=== PATIENT | female | born 1975 ===

== ENCOUNTER 2017-06-08 21:27 | Emergency (ER) | payer MEDICAID ==
[2017-06-08 21:27] VITALS: BMI 26.4
[2017-06-08 22:22] VITALS: BP 158/114; PULSE 86; RESP 18; TEMP 98.1; O2SAT 100
[2017-06-08] MEDS ORDERED: Sodium Chloride 0.9% 1,000 ML IV STA (23:10)
--- NOTE | 2017-06-08 23:27 | ED PDOC ---
HPI: Abdomen Time Seen by Provider: 06/08/17 22:52 Chief Complaint (Nursing): Abdominal Pain Chief Complaint (Provider): left flank pain History Per: Patient History/Exam Limitations: no limitations Onset/Duration Of Symptoms: Days (1) Current Symptoms Are (Timing): Still Present Location Of Pain/Discomfort: Other (left lower back radiating to left flank) Associated Symptoms: Nausea, Vomiting Last Bowel Movement: Days Ago (2) Additional History Per: Patient Additional Complaint(s): 42 y/o female history of lupus, fibromyalgia, kidney stones presents with left lower back pain x 1 day. Associated hematuria, vomiting x 3. States pain started in left lower back and travels out to flank. Patient with history of multiple kidney stones requiring surgical intervention, concerned this could be another one. Denies fever, headache, chest pain, shortness of breath, palpitations, changes in bowel movements, dysuria. Past Medical History Reviewed: Historical Data, Nursing Documentation, Vital Signs Vital Signs: Last Vital Signs Temp 98.1 F 06/08/17 22:19 Pulse 86 06/08/17 22:19 Resp 18 06/08/17 22:19 BP 158/114 H 06/08/17 22:19 Pulse Ox 100 06/09/17 02:10 - Medical History PMH: Anemia, Anxiety, Asthma, HTN, Kidney Stones, Migraine, Chronic Kidney Disease, Rheumatoid Arthritis - Surgical History Surgical History: Endoscopy - Family History Family History: States: Unknown Family Hx - Immunization History Hx Tetanus Toxoid Vaccination: No Hx Influenza Vaccination: No Hx Pneumococcal Vaccination: No - Home Medications Home Medications: Ambulatory Orders Medication Instructions Recorded Albuterol 0.083% [Albuterol 0.083% 3 ml IH PRN PRN 01/05/15 Inhal Arlen (2.5 mg/3 ml) UD] Albuterol Sulfate [Albuterol 1 puff INH PRN PRN 01/05/15 Sulfate Hfa] Alprazolam [Xanax] 1 mg PO DAILY 01/05/15 Etanercept [Enbrel] 50 mg SC TH 01/05/15 Folic Acid 1 mg PO DAILY 01/05/15 Montelukast [Singulair] 10 mg PO DAILY 01/05/15 Zolpidem Tartrate [Ambien] 5 mg PO HS 01/05/15 traMADol [Ultram] 50 mg PO TID PRN #12 tab 03/13/16 Calcipotriene 1 appl TP BID 03/25/16 Ergocalciferol [Drisdol 50,000 50,000 unit PO QWK 03/25/16 Intl Units Cap] Ferrous Sulfate 325 mg PO DAILY 03/25/16 Methotrexate 6 tab PO QWK 03/25/16 Omeprazole [Prilosec] 40 mg PO DAILY 03/25/16 Cyclobenzaprine [Cyclobenzaprine 10 mg PO BID PRN #14 tab 06/09/17 HCl] - Allergies Allergies/Adverse Reactions: Allergies Allergy/AdvReac Type Severity Reaction Status Date / Time Penicillins Allergy Severe RASH Verified 03/25/16 13:08 iodine Allergy REDNESS Verified 03/25/16 13:08 morphine Allergy RASH Verified 03/25/16 13:08 seafood Allergy SWELLING Uncoded 03/13/16 14:13 Review of Systems ROS Statement: Except As Marked, All Systems Reviewed And Found Negative Gastrointestinal: Positive for: Nausea, Vomiting, Abdominal Pain Physical Exam - Reviewed Nursing Documentation Reviewed: Yes Vital Signs Reviewed: Yes - Physical Exam Appears: Positive for: Well, Non-toxic, Uncomfortable Head Exam: Positive for: ATRAUMATIC, NORMAL INSPECTION, NORMOCEPHALIC Skin: Positive for: Normal Color Eye Exam: Positive for: Normal appearance ENT: Positive for: Normal ENT Inspection Cardiovascular/Chest: Positive for: Regular Rate, Rhythm Respiratory: Positive for: Normal Breath Sounds Gastrointestinal/Abdominal: Positive for: Bowel Sounds, Soft, Tenderness (left flank) Back: Positive for: L CVA Tenderness, Muscle Spasm (left lspine paraspinals) Extremity: Positive for: Normal ROM Neurologic/Psych: Positive for: Alert, Oriented - Laboratory Results Result Diagrams: 06/08/17 23:00 06/08/17 23:20 - ECG O2 Sat by Pulse Oximetry: 100 - Progress ED Course And Treament: labs, urine, CT renal protocol, IV fluids, IV zofran, IV toradol Initial Report created on 06/09/2017 12:55 AM Eastern Time ([place] & [place]) EXAM: CT Abdomen and Pelvis Without Intravenous Contrast CLINICAL HISTORY: 42 years old, female; Pain; Abdominal pain; Flank; Left; Prior surgery; Surgery date: 6+ months; Surgery type: Laser lithotripsy; Additional info: Left flank pain. TECHNIQUE: Axial computed tomography images of the abdomen and pelvis without intravenous contrast. All CT scans at this facility use one or more dose reduction techniques, viz.: automated exposure control; ma/kV adjustment per patient size (including targeted exams where dose is matched to indication; i.e. head); or iterative reconstruction technique. Coronal and sagittal reformatted images were created and reviewed. COMPARISON: CT - ABD PELVIS W/O PO OR IV CONT 11/28/2016 9:03:05 AM FINDINGS: Lower thorax: Small hiatal hernia. ABDOMEN: Liver: Unremarkable. Gallbladder and bile ducts: No calcified stones. No ductal dilation. Pancreas: Unremarkable. No ductal dilation. Spleen: No splenomegaly. Adrenals: No mass. Kidneys and ureters: Few small calculi within LEFT kidney. No hydronephrosis. Stomach and bowel: Cecum within pelvis. No definite mural thickening. No obstruction. Appendix: No findings to suggest acute appendicitis. PELVIS: Bladder: Unremarkable. No stones. Reproductive: Small ovarian follicles. ABDOMEN and PELVIS: Intraperitoneal space: No significant fluid collection. No free air. Bones/joints: Chronic L5 pars defects. Mild curvature of spine. Mild degenerative changes of hip joints. No acute fracture. Soft tissues: Unremarkable. Vasculature: Unremarkable. No aneurysm. Lymph nodes: No pathologically enlarged lymph nodes. IMPRESSION: 1. Nonobstructing renal calculi. 2. Incidental/non-acute findings are described above. Addendum created by Sanjay Mcdonough MD on 06/09/2017 1:02 AM Eastern Time ([place] & [place]) Kidneys and ureters: Few small calculi within LEFT kidney. Few faint punctate calculi within RIGHT kidney. No hydronephrosis. Patient educated on findings, flexeril PO given. Advised follow up PMD 2-3 days. flexeril rx given. Follow up PMD 2-3 days. Disposition - Clinical Impression Clinical Impression: Back pain - Patient ED Disposition Is Patient to be Admitted: No Counseled Patient/Family Regarding: Studies Performed, Diagnosis, Need For Followup, Rx Given - Disposition Referrals: Bin Leigh MD [Primary Care Provider] - Disposition: Routine/Home Disposition Time: 02:13 Condition: IMPROVED Prescriptions: Cyclobenzaprine [Cyclobenzaprine HCl] 10 mg PO BID PRN #14 tab PRN Reason: Muscle Spasm Instructions: Acute Low Back Pain (ED)
[2017-06-08 23:28] LABS: BASO % 0.6 % (0.0-2.0); EOS # 0.1 K/uL (0.0-0.7); EOS % 1.9 % (0.0-4.0); HEMATOCRIT 38.5 % (34.0-47.0); LYMPH # 2.5 K/uL (1.0-4.3); LYMPH % 34.8 % (20.0-40.0); MEAN CELL VOLUME 92.3 fl (81.0-99.0); MEAN CORPUSCULAR HEMOGLOBIN 30.7 pg (27.0-31.0); MEAN CORPUSCULAR HGB CONC 33.3 g/dL (33.0-37.0); MEAN PLATELET VOLUME 8.2 fl (7.2-11.7); MONO # 0.6 K/uL (0.0-0.8); MONO % 7.8 % (0.0-10.0); NEUT # 3.9 K/uL (1.8-7.0); NEUT % 54.9 % (50.0-75.0); NRBC % 0.1 % (0.0-0.0); RED CELL DISTRIBUTION WIDTH 13.6 % (11.5-14.5); WHITE BLOOD COUNT 7.1 K/uL (4.8-10.8)
[2017-06-08 23:38] LABS: ALB/GLOB RATIO 1.4 (1.0-2.1); ALKALINE PHOSPHATASE 74 U/L (38-126); ALT/SGPT 28 U/L (9-52); AST/SGOT 31 U/L (14-36); BILIRUBIN,TOTAL 0.4 mg/dl (0.2-1.3); BLOOD UREA NITROGEN 13 mg/dl (7-17); CALCIUM 9.7 mg/dL (8.4-10.2); CARBON DIOXIDE 25 mmol/L (22-30); CHLORIDE 103 mmol/L (98-107); GFR AFRICAN-AMERICAN > 60; GLUCOSE,RANDOM 89 mg/dL (65-105); POTASSIUM 4.1 MMOL/L (3.6-5.0); SODIUM 143 mmol/l (132-148); TOTAL PROTEIN 8.3 G/DL (6.3-8.2)
[2017-06-09 00:29] LABS: RBC URINE 3 /hpf (0-3); URINE BACTERIA RARE (<OCC); URINE BILIRUBIN NEGATIVE (NEGATIVE); URINE BLOOD NEGATIVE (NEGATIVE); URINE COLOR YELLOW (YELLOW); URINE GLUCOSE (UA) NEG (Normal); URINE KETONE NEGATIVE (NEGATIVE); URINE LEUKOCYTE ESTERASE NEG Leu/uL (Negative); URINE PROTEIN NEGATIVE (NEGATIVE); URINE UROBILINOGEN 0.2-1.0 mg/dL (0.2-1.0); WBC URINE 1 /hpf (0-5)
--- NOTE | 2017-06-09 00:55 | CT ---
EXAM: CT Abdomen and Pelvis Without Intravenous Contrast CLINICAL HISTORY: 42 years old, female; Pain; Abdominal pain; Flank; Left; Prior surgery; Surgery date: 6+ months; Surgery type: Laser lithotripsy; Additional info: Left flank pain. TECHNIQUE: Axial computed tomography images of the abdomen and pelvis without intravenous contrast. All CT scans at this facility use one or more dose reduction techniques, viz.: automated exposure control; ma/kV adjustment per patient size (including targeted exams where dose is matched to indication; i.e. head); or iterative reconstruction technique. Coronal and sagittal reformatted images were created and reviewed. COMPARISON: CT - ABD PELVIS W/O PO OR IV CONT 11/28/2016 9:03:05 AM FINDINGS: Lower thorax: Small hiatal hernia. ABDOMEN: Liver: Unremarkable. Gallbladder and bile ducts: No calcified stones. No ductal dilation. Pancreas: Unremarkable. No ductal dilation. Spleen: No splenomegaly. Adrenals: No mass. Kidneys and ureters: Few small calculi within LEFT kidney. No hydronephrosis. Stomach and bowel: Cecum within pelvis. No definite mural thickening. No obstruction. Appendix: No findings to suggest acute appendicitis. PELVIS: Bladder: Unremarkable. No stones. Reproductive: Small ovarian follicles. ABDOMEN and PELVIS: Intraperitoneal space: No significant fluid collection. No free air. Bones/joints: Chronic L5 pars defects. Mild curvature of spine. Mild degenerative changes of hip joints. No acute fracture. Soft tissues: Unremarkable. Vasculature: Unremarkable. No aneurysm. Lymph nodes: No pathologically enlarged lymph nodes. IMPRESSION: 1. Nonobstructing renal calculi. 2. Incidental/non-acute findings are described above.
== END 2017-06-09 02:29 | disposition home or self-care (01) ==
LOC: H.ER 21:27
DX: M54.9 Dorsalgia, unspecified (principal); F41.9 Anxiety disorder, unspecified; I12.9 Hypertensive chronic kidney disease with stage 1 through stage 4 chronic kidney disease, or unspecified chronic kidney disease; J45.909 Unspecified asthma, uncomplicated; M06.9 Rheumatoid arthritis, unspecified; Z88.0 Allergy status to penicillin; M32.9 Systemic lupus erythematosus, unspecified
CPT/HCPCS: 74176; 80053; 81003; 81025; 85025; 87086; 96374; 96375; 99283; J1885; J2405; J7040

== ENCOUNTER 2017-11-12 17:35 | Emergency (ER) | payer MEDICAID ==
[2017-11-12 17:35] VITALS: BMI 26.4
[2017-11-12 17:43] VITALS: TEMP 97.7
[2017-11-12] MEDS ORDERED: Sodium Chloride 0.9% 1,000 ML IV STA (17:57)
--- NOTE | 2017-11-12 18:03 | ED PDOC ---
HPI: Chest Pain Time Seen by Provider: 11/12/17 17:45 Chief Complaint (Nursing): Chest Pain Chief Complaint (Provider): Chest Pain History Per: Patient History/Exam Limitations: no limitations Onset/Duration Of Symptoms: Days Additional Complaint(s): 42 year old female with a past medical history of lupus who presents to the emergency department with a complaint of chest pain described as a stabbing sensation since 5 am this morning, 11/12/2017. Associated with nausea, back pain , left shoulder and arm pain with tingling. Reports she has been experiencing high blood pressure for the past 2 weeks. States she took her DEPO shot around 1600 and was told by her primary doctor that she looked yellow and received cold compresses before coming to the emergency department. Denies headache, numbness or facial weakness, or leg pain. 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 Patient had a stress test about 3-4 years ago for the same symptoms and was told everything came out negative. Patient was told to see him again if symptoms returned. PMD: Dr. Bin Leigh MD Population Health Coach: Dr. Chavez Feliz MD Past Medical History Reviewed: Historical Data, Nursing Documentation, Vital Signs Vital Signs: Last Vital Signs Temp 97.7 F 11/12/17 17:39 Pulse 100 H 11/12/17 18:25 Resp 16 11/12/17 18:25 BP 145/92 H 11/12/17 18:25 Pulse Ox 100 11/12/17 18:27 - Medical History PMH: Anemia, Anxiety, Asthma, HTN, Kidney Stones, Migraine, Chronic Kidney Disease Other PMH: Lupus - Surgical History Surgical History: Endoscopy - Family History Family History: States: Unknown Family Hx - Social History Current smoker - smoking cessation education provided: No Alcohol: None Drugs: Denies - Immunization History Hx Tetanus Toxoid Vaccination: No Hx Influenza Vaccination: No Hx Pneumococcal Vaccination: No - Home Medications Home Medications: Ambulatory Orders Medication Instructions Recorded Albuterol 0.083% [Albuterol 0.083% 3 ml IH PRN PRN 01/05/15 Inhal Arlen (2.5 mg/3 ml) UD] Albuterol Sulfate [Albuterol 1 puff INH PRN PRN 01/05/15 Sulfate Hfa] Alprazolam [Xanax] 1 mg PO DAILY 01/05/15 Etanercept [Enbrel] 50 mg SC TH 01/05/15 Folic Acid 1 mg PO DAILY 01/05/15 Montelukast [Singulair] 10 mg PO DAILY 01/05/15 Zolpidem Tartrate [Ambien] 5 mg PO HS 01/05/15 traMADol [Ultram] 50 mg PO TID PRN #12 tab 03/13/16 Calcipotriene 1 appl TP BID 03/25/16 Ergocalciferol [Drisdol 50,000 50,000 unit PO QWK 03/25/16 Intl Units Cap] Ferrous Sulfate 325 mg PO DAILY 03/25/16 Methotrexate 6 tab PO QWK 03/25/16 Omeprazole [Prilosec] 40 mg PO DAILY 03/25/16 Cyclobenzaprine [Cyclobenzaprine 10 mg PO BID PRN #14 tab 06/09/17 HCl] - Allergies Allergies/Adverse Reactions: Allergies Allergy/AdvReac Type Severity Reaction Status Date / Time Penicillins Allergy Severe RASH Verified 11/12/17 17:42 iodine Allergy REDNESS Verified 11/12/17 17:42 morphine Allergy RASH Verified 11/12/17 17:42 seafood Allergy SWELLING Uncoded 11/12/17 17:42 Review of Systems ROS Statement: Except As Marked, All Systems Reviewed And Found Negative (As per HPI, otherwise negative) Cardiovascular: Positive for: Chest Pain Respiratory: Positive for: Shortness of Breath Gastrointestinal: Positive for: Nausea Musculoskeletal: Positive for: Shoulder Pain (Left shoulder pain and tingling), Arm Pain (Left arm pain and tingling), Back Pain. Negative for: Leg Pain Neurological: Negative for: Weakness (or facial numbness), Numbness, Headache Physical Exam - Reviewed Nursing Documentation Reviewed: Yes - Physical Exam Appears: Positive for: No Acute Distress Head Exam: Positive for: NORMAL INSPECTION Skin: Positive for: Normal Color, Warm, Dry Eye Exam: Positive for: Normal appearance ENT: Positive for: Normal ENT Inspection Neck: Positive for: Normal, Painless ROM, Supple Cardiovascular/Chest: Positive for: Regular Rate, Rhythm. Negative for: Murmur Respiratory: Positive for: Normal Breath Sounds. Negative for: Accessory Muscle Use, Respiratory Distress Gastrointestinal/Abdominal: Positive for: Normal Exam, Soft. Negative for: Tenderness Back: Positive for: Normal Inspection. Negative for: L CVA Tenderness, R CVA Tenderness Extremity: Positive for: Normal ROM (Equal 5/5 strength throughout all extremities bilaterally). Negative for: Tenderness, Pedal Edema Neurologic/Psych: Positive for: Alert, wall taper helper II-XII (Intact), Oriented (x3). Negative for: Motor/Sensory Deficits, Facial Droop - Laboratory Results Result Diagrams: 11/12/17 18:15 11/12/17 18:15 Interpretation Of Abn Labs: no acute - ECG ECG: Positive for: Interpreted By Me, Viewed By Me O2 Sat by Pulse Oximetry: 100 (RA) Pulse Ox Interpretation: Normal - Radiology X-Ray: Interpreted by Me, Viewed By Me X-Ray Interpretation: No Acute Disease - Progress ED Course And Treament: 2033: Stable. AAOx3. Pain free. Refuses to stay for admission and further testing. Has capacity to make decisions. Aware of possible or decreased functioning from chest pain and its causes. Pt. aware and will go against medical advice. Medical Decision Making Medical Decision Making: Time: 1800 Initial impression: Chest pain Initial plan: --EKG --B-Type Natriuretic Peptide [place] --CMP --Troponin I --CBC w/ diff --D Dimer --Chest portable --Aspirin 325 mg PO --Pepcid 20 mg IVP --Tramadol 50 mg PO --Sodium Chloride 1 L IV --Reevaluation Scribe Attestation: Documented by Andressa Bowie, acting as a scribe for Dominick Roberto MD. Provider Scribe Attestation: All medical record entries made by the Scribe were at my direction and personally dictated by me. I have reviewed the chart and agree that the record accurately reflects my personal performance of the history, physical exam, medical decision making, and the department course for this patient. I have also personally directed, reviewed, and agree with the discharge instructions and disposition. Disposition - Clinical Impression Clinical Impression: Chest pain - Patient ED Disposition Is Patient to be Admitted: No Counseled Patient/Family Regarding: Studies Performed, Diagnosis - Disposition Disposition: Against Medical Advice Disposition Time: 20:37 Condition: STABLE Additional Instructions: You are going against medical advice. You are refusing admission and further evaluation/treatment. You are aware of possible or decreased functioning from chest pain and its causes. Return right away for further evaluation and treatment. Instructions: Chest Pain Forms: [employer] (Mongolian)
[2017-11-12 18:27] LABS: BASO % 0.7 % (0.0-2.0); EOS % 0.8 % (0.0-4.0); HEMOGLOBIN 12.1 g/dL (12.0-16.0); LYMPH # 1.8 K/uL (1.0-4.3); LYMPH % 31.5 % (20.0-40.0); MEAN CELL VOLUME 90.5 fl (81.0-99.0); MEAN CORPUSCULAR HEMOGLOBIN 31.1 pg (27.0-31.0); MEAN CORPUSCULAR HGB CONC 34.4 g/dL (33.0-37.0); MEAN PLATELET VOLUME 8.4 fl (7.2-11.7); MONO # 0.4 K/uL (0.0-0.8); MONO % 6.7 % (0.0-10.0); NEUT # 3.4 K/uL (1.8-7.0); NEUT % 60.3 % (50.0-75.0); NRBC % 0.1 % (0.0-0.0); RBC 3.89 Mil/uL (3.80-5.20); RED CELL DISTRIBUTION WIDTH 12.7 % (11.5-14.5); WHITE BLOOD COUNT 5.6 K/uL (4.8-10.8)
[2017-11-12 18:46] LABS: ALB/GLOB RATIO 1.3 (1.0-2.1); ALBUMIN 4.5 g/dL (3.5-5.0); ALT/SGPT 27 U/L (9-52); AST/SGOT 21 U/L (14-36); BLOOD UREA NITROGEN 10 mg/dl (7-17); CALCIUM 9.6 mg/dL (8.4-10.2); GFR AFRICAN-AMERICAN > 60; GFR NON-AFRICAN AMERICAN > 60
[2017-11-12 18:58] LABS: B-TYPE NATRIURETIC PEPTIDE 73.5 pg/ml (0-450)
[2017-11-12 19:43] VITALS: RESP 16
[2017-11-12 21:48] VITALS: BP 134/96; PULSE 87; O2SAT 99
--- NOTE | 2017-11-12 23:18 | RAD ---
HISTORY: dyspnea COMPARISON: Chest radiograph 01/05/2013. FINDINGS: LUNGS: No active pulmonary disease. PLEURA: No significant pleural effusion identified, no pneumothorax apparent. CARDIOVASCULAR: Normal. OSSEOUS STRUCTURES: No significant abnormalities. VISUALIZED UPPER ABDOMEN: Normal. OTHER FINDINGS: None. IMPRESSION: No interval acute cardiopulmonary disease appreciated.
--- NOTE | 2017-11-13 18:07 | CARD ---
APPROVED REPORT EKG Measurement Heart [id number] <Conclusion> Sinus tachycardia Nonspecific ST abnormality Abnormal ECG
== END 2017-11-12 21:48 | disposition left against medical advice (07) ==
LOC: H.ER 17:35
DX: R07.89 Other chest pain (principal); F41.9 Anxiety disorder, unspecified; I12.9 Hypertensive chronic kidney disease with stage 1 through stage 4 chronic kidney disease, or unspecified chronic kidney disease; M32.9 Systemic lupus erythematosus, unspecified; Z88.0 Allergy status to penicillin
CPT/HCPCS: 71045; 80053; 81025; 83880; 84484; 85025; 85378; 93005; 96374; 99285; J7040

== ENCOUNTER 2018-03-26 21:51 | Inpatient (IN) | payer MEDICAID ==
[2018-03-26 21:51] VITALS: BMI 26.4
[2018-03-27] MEDS ORDERED: Sodium Chloride 0.9% 1,000 ML IV STA (00:11)
[2018-03-27 00:49] LABS: HEMOGLOBIN 11.8 g/dL (12.0-16.0); MEAN CELL VOLUME 96.7 fl (81.0-99.0); MEAN CORPUSCULAR HEMOGLOBIN 32.7 pg (27.0-31.0); MEAN CORPUSCULAR HGB CONC 33.8 g/dL (33.0-37.0); RBC 3.61 Mil/uL (3.80-5.20); WHITE BLOOD COUNT 5.5 K/uL (4.8-10.8)
[2018-03-27 00:50] LABS: BASO % 0.6 % (0.0-2.0); EOS % 0.4 % (0.0-4.0); LYMPH # 1.2 K/uL (1.0-4.3); LYMPH % 21.1 % (20.0-40.0); MEAN PLATELET VOLUME 8.1 fl (7.2-11.7); MONO # 0.5 K/uL (0.0-0.8); MONO % 9.4 % (0.0-10.0); NEUT # 3.7 K/uL (1.8-7.0); NEUT % 68.5 % (50.0-75.0); NRBC % 0.1 % (0.0-0.0); RED CELL DISTRIBUTION WIDTH 14.7 % (11.5-14.5)
[2018-03-27 01:00] LABS: ALB/GLOB RATIO 1.4 (1.0-2.1); ALBUMIN 4.8 g/dL (3.5-5.0); ALT/SGPT 36 U/L (9-52); AST/SGOT 33 U/L (14-36); BLOOD UREA NITROGEN 12 mg/dl (7-17); CALCIUM 9.9 mg/dL (8.4-10.2); GFR AFRICAN-AMERICAN > 60; GFR NON-AFRICAN AMERICAN > 60; INR 1.1 (0.9-1.2); PROTHROMBIN TIME 11.8 Seconds (9.8-13.1); SQUAMOUS EPITHIAL 1 /hpf (0-5); URINE BILIRUBIN NEGATIVE (NEGATIVE); URINE BLOOD NEGATIVE (NEGATIVE); URINE CLARITY SLIGHTY-CLOUDY (Clear); URINE COLOR YELLOW (YELLOW); URINE GLUCOSE (UA) 50 mg/dL (Normal); URINE LEUKOCYTE ESTERASE NEG Leu/uL (Negative); URINE PROTEIN 30 mg/dL (NEGATIVE); URINE UROBILINOGEN 0.2-1.0 mg/dL (0.2-1.0)
[2018-03-27 01:01] LABS: PARTIAL THROMBOPLASTIN TIME 32.3 Seconds (25.6-37.1)
--- NOTE | 2018-03-27 05:05 | ED PDOC ---
HPI: General Adult Time Seen by Provider: 03/26/18 23:44 Chief Complaint (Nursing): Trauma History Per: Patient Additional Complaint(s): Pt. states on Thursday she was outside walking to the grocery store when she fell down. She was informed by 2 bystanders who witnessed the fall that she had a seizure and was foaming at the mouth. The ambulance was called but she refused care and went home. States that she had to take care of her 80 y/r mother who has dementia. Pt. states that she's had "6 seizures" since the fall. Pt. states her mother has witnessed the fall. Reports a hx of seizures since last year. Further states that she was evaluated by Dr. Ospina (neurologist) last year for the seizures. Pt. was informed that her seizures were likely due to a lupus medication she was taking at the time but she does not remember the name of it. States she eventually did sign AMA during stay. Reports having intermittent headaches and vomiting since the fall. Also c/o L pelvic pain and bruising and R knee pain. Denies fever, chest pain, SOB, hemoptysis, previous TBI, neck pain , back pain, numbness, tingling, incontinence, tongue biting. Of note, pt. was seen by Dr. Calderon today who advised her to come to ED for further evaluation. Past Medical History Reviewed: Historical Data, Nursing Documentation, Vital Signs Vital Signs: Last Vital Signs Temp 98.6 F 03/26/18 22:04 Pulse 91 H 03/27/18 06:03 Resp 16 03/27/18 03:04 BP 130/93 H 03/27/18 03:04 Pulse Ox 98 03/27/18 06:03 - Medical History PMH: Anemia, Anxiety, Asthma, HTN, Kidney Stones, Migraine, Chronic Kidney Disease, Rheumatoid Arthritis, Seizures - Surgical History Surgical History: Endoscopy - Family History Family History: States: No Known Family Hx - Immunization History Hx Tetanus Toxoid Vaccination: No Hx Influenza Vaccination: No Hx Pneumococcal Vaccination: No - Home Medications Home Medications: Ambulatory Orders Medication Instructions Recorded Albuterol 0.083% [Albuterol 0.083% 3 ml IH PRN PRN 01/05/15 Inhal Arlen (2.5 mg/3 ml) UD] Albuterol Sulfate [Albuterol 1 puff INH PRN PRN 01/05/15 Sulfate Hfa] Alprazolam [Xanax] 1 mg PO DAILY 01/05/15 Etanercept [Enbrel] 50 mg SC TH 01/05/15 Folic Acid 1 mg PO DAILY 01/05/15 Montelukast [Singulair] 10 mg PO DAILY 01/05/15 Zolpidem Tartrate [Ambien] 5 mg PO HS 01/05/15 traMADol [Ultram] 50 mg PO TID PRN #12 tab 03/13/16 Calcipotriene 1 appl TP BID 03/25/16 Ergocalciferol [Drisdol 50,000 50,000 unit PO QWK 03/25/16 Intl Units Cap] Ferrous Sulfate 325 mg PO DAILY 03/25/16 Methotrexate 6 tab PO QWK 03/25/16 Omeprazole [Prilosec] 40 mg PO DAILY 03/25/16 Cyclobenzaprine [Cyclobenzaprine 10 mg PO BID PRN #14 tab 06/09/17 HCl] Lisinopril [Zestril] 10 mg PO DAILY 03/27/18 Ondansetron ODT [Zofran ODT] 4 mg SL PRN PRN 03/27/18 Sumatriptan Succinate [Imitrex] 50 mg PO PRN PRN 03/27/18 predniSONE [predniSONE Tab] 40 mg PO DAILY 03/27/18 - Allergies Allergies/Adverse Reactions: Allergies Allergy/AdvReac Type Severity Reaction Status Date / Time Penicillins Allergy Severe RASH Verified 03/26/18 22:04 iodine Allergy REDNESS Verified 03/26/18 22:04 morphine Allergy RASH Verified 03/26/18 22:04 seafood Allergy SWELLING Uncoded 03/26/18 22:04 Review of Systems ROS Statement: Except As Marked, All Systems Reviewed And Found Negative Genitourinary Female: Positive for: Pelvic Pain Neurological: Positive for: Seizures, Headache Physical Exam - Physical Exam Appears: Positive for: Well, Non-toxic, No Acute Distress Head Exam: Negative for: ATRAUMATIC, NORMAL INSPECTION, NORMOCEPHALIC (minimal swellign to forehead; superficial abrasion to L side of forehead; b/l racoon eyes with bruising worse on L eye) Skin: Positive for: Normal Color, Warm. Negative for: Rash Eye Exam: Positive for: EOMI, PERRL, Other (no hyphema b/l). Negative for: Periorbital swelling, Periorbital tenderness, Conjunctival injection (b/l) ENT: Positive for: Normal ENT Inspection, TM Is/Are (no hemotympanum b/l) Neck: Positive for: Normal, Painless ROM Cardiovascular/Chest: Positive for: Regular Rate, Rhythm, Chest Non Tender Respiratory: Positive for: Normal Breath Sounds. Negative for: Respiratory Distress Pulses-Dorsalis Pedis (L): 2+ Pulses-Dorsalis Pedis (R): 2+ Gastrointestinal/Abdominal: Positive for: Normal Exam, Soft, Other (ecchymotic area to L pelvic region). Negative for: Tenderness Back: Positive for: Normal Inspection. Negative for: L CVA Tenderness, R CVA Tenderness, Vertebral Tenderness (including cervical spine) Extremity: Positive for: Normal ROM, Other (R knee with ecchymosis and tenderness but no swelling or deformity) Neurologic/Psych: Positive for: Alert, Oriented (x 3). Negative for: Aphasia, Facial Droop - Laboratory Results Result Diagrams: 03/27/18 00:48 03/27/18 00:48 - ECG ECG: Positive for: Interpreted By Me ECG Rhythm: Positive for: Sinus Rhythm. Negative for: ST/T Changes Rate: 91 O2 Sat by Pulse Oximetry: 98 - Radiology X-Ray: Interpreted by Me (Knee x-ray) X-Ray Interpretation: No Acute Disease - Progress ED Course And Treament: Labs, IV hydration ordered. Pt. placed on hospital monitor. CT head/maxillofacial w/o contrast, CT chest/abd/pelvis ordered. CT's were all normal. Case d/w Dr. Carbajal and arrangements made for admission. Requests Dr. Waller for neurology. Disposition - Clinical Impression Clinical Impression: Head injury, Facial contusion, Seizure - Patient ED Disposition Is Patient to be Admitted: Yes - Disposition Disposition: Routine/Home Disposition Time: 00:38 Condition: STABLE
--- NOTE | 2018-03-27 07:51 | CP.PCM.HP ---
History of Present Illness - History of Present Illness History of Present Illness: This is a 42 y/o female admitted for recurrent seizures. She apparently had a seizure while outside doing her food shopping 5 days ago. It was witnessed. She was seen by EMT but refused to be hospitalized. She had 6 more seizures after that. yesterday she was witnessed by her mother and she was advised hospitalization her PMD, Dr Calderon. She claims that she started having seizures last year . She was diagnosed to have SLE and was placed on medication. She was on Methotrexate and Tramadol and claimed that since then she started having seizures. The medications were stopped however few weeks ago she was restarted on Tramadol for headaches. Medical Hx Headaches Asthma HTN Insomnia SLE medications ambien, Tramadol, methotrexate Lisinopril Present on Admission - Present on Admission Any Indicators Present on Admission: No History of DVT/PE: No History of Uncontrolled Diabetes: No Urinary Catheter: No Decubitus Ulcer Present: No Review of Systems - Constitutional Constitutional: Headache - Neurological Neurological: Headaches, Paresthesias Past Patient History - Infectious Disease Hx of Infectious Diseases: None - Past Medical History & Family History Past Medical History?: Yes - Past Social History Smoking Status: Never Smoked - CARDIAC Hx Hypertension: Yes - PULMONARY Hx Asthma: Yes - NEUROLOGICAL Hx Migraine: Yes Hx Seizures: Yes - HEENT Hx HEENT Problems: No - RENAL Hx Chronic Kidney Disease: Yes Hx Kidney Stones: Yes - ENDOCRINE/METABOLIC Hx Endocrine Disorders: Yes Hx Systemic Lupus Erythematosus: Yes - HEMATOLOGICAL/ONCOLOGICAL Hx Anemia: Yes - INTEGUMENTARY Hx Dermatological Problems: No - MUSCULOSKELETAL/RHEUMATOLOGICAL Hx Rheumatoid Arthritis: Yes - GASTROINTESTINAL Hx Gastrointestinal Disorders: Yes Hx Gastroesophageal Reflux: Yes Hx Ulcer: Yes - GENITOURINARY/GYNECOLOGICAL Hx Genitourinary Disorders: No - PSYCHIATRIC Hx Anxiety: Yes - SURGICAL HISTORY Hx Surgeries: Yes - ANESTHESIA Hx Anesthesia: Yes Hx Anesthesia Reactions: Yes (SEVERE VOMITING) Hx Malignant Hyperthermia: No Meds Allergies/Adverse Reactions: Allergies Allergy/AdvReac Type Severity Reaction Status Date / Time lisinopril Allergy Severe ANAPHYLAXIS Verified 03/28/18 13:41 Penicillins Allergy Severe RASH Verified 03/26/18 22:04 iodine Allergy REDNESS Verified 03/26/18 22:04 morphine Allergy RASH Verified 03/26/18 22:04 levetiracetam [[facility]] AdvReac SWELLING Verified 03/28/18 13:42 seafood Allergy SWELLING Uncoded 03/26/18 22:04 Physical Exam - Head Exam Head Exam: NORMAL INSPECTION - Eye Exam Eye Exam: Normal appearance - Respiratory Exam Respiratory Exam: Clear to Auscultation Bilateral - Cardiovascular Exam Cardiovascular Exam: REGULAR RHYTHM - GI/Abdominal Exam GI & Abdominal Exam: Normal Bowel Sounds - Neurological Exam Neurological exam: CN II-XII Intact, Normal Gait, Oriented x3 - Psychiatric Exam Psychiatric exam: Anxious Results - Vital Signs Recent Vital Signs: Last Vital Signs Temp 98.2 F 03/27/18 06:15 Pulse 91 H 03/27/18 06:34 Resp 16 03/27/18 06:15 BP 132/89 03/27/18 06:15 Pulse Ox 98 03/27/18 06:34 - Labs Result Diagrams: 03/27/18 00:48 03/27/18 00:48 Labs: Laboratory Results - last 24 hr 03/27/18 03/27/18 03/27/18 00:45 00:48 00:48 WBC 5.5 RBC 3.61 L Hgb 11.8 L Hct 34.9 MCV 96.7 D MCH 32.7 H MCHC 33.8 RDW 14.7 H Plt Count 233 MPV 8.1 Neut % (Auto) 68.5 Lymph % (Auto) 21.1 [place] % (Auto) 9.4 Eos % (Auto) 0.4 Baso % (Auto) 0.6 Neut # (Auto) 3.7 Lymph # (Auto) 1.2 [place] # (Auto) 0.5 Eos # (Auto) 0.0 Baso # (Auto) 0.0 PT INR APTT Sodium 140 Potassium 3.9 Chloride 106 Carbon Dioxide 22 Anion Gap 16 BUN 12 Creatinine 0.6 L Est GFR ( Amer) > 60 Est GFR (Non-Af Amer) > 60 Random Glucose 131 H Calcium 9.9 Total Bilirubin 0.5 AST 33 ALT 36 Alkaline Phosphatase 50 Total Protein 8.3 H Albumin 4.8 Globulin 3.5 Albumin/Globulin Ratio 1.4 Urine Color Urine Clarity Urine pH Ur Specific [place] Urine Protein Urine Glucose (UA) Urine Ketones Urine Blood Urine Nitrate Urine Bilirubin Urine Urobilinogen Ur Leukocyte Esterase Urine RBC (Auto) Urine Microscopic WBC Ur Squamous Epith Cells Blood Type A NEGATIVE Antibody Screen Negative BBK History Checked Patient has bt 03/27/18 03/27/18 00:48 00:48 WBC RBC Hgb Hct MCV MCH MCHC RDW Plt Count MPV Neut % (Auto) Lymph % (Auto) [place] % (Auto) Eos % (Auto) Baso % (Auto) Neut # (Auto) Lymph # (Auto) [place] # (Auto) Eos # (Auto) Baso # (Auto) PT 11.8 INR 1.1 APTT 32.3 Sodium Potassium Chloride Carbon Dioxide Anion Gap BUN Creatinine Est GFR ( Amer) Est GFR (Non-Af Amer) Random Glucose Calcium Total Bilirubin AST ALT Alkaline Phosphatase Total Protein Albumin Globulin Albumin/Globulin Ratio Urine Color Yellow Urine Clarity Slighty-cloudy Urine pH 5.0 Ur Specific [place] 1.036 H Urine Protein 30 Urine Glucose (UA) 50 Urine Ketones Trace Urine Blood Negative Urine Nitrate Negative Urine Bilirubin Negative Urine Urobilinogen 0.2-1.0 Ur Leukocyte Esterase Neg Urine RBC (Auto) 4 H Urine Microscopic WBC 2 Ur Squamous Epith Cells 1 Blood Type Antibody Screen BBK History Checked Assessment & Plan (1) Seizure Status: Acute (2) Facial contusion Status: Acute (3) Back pain Status: Acute (4) Hypertension Status: Acute (5) Asthma Status: Acute (6) SLE (systemic lupus erythematosus) Status: Acute - Assessment and Plan (Free Text) Plan: telemetry neuro eval cont meds DC tramadol as it karlos have been causing lowered seizur ethreshold cont pain meds
[2018-03-27] MEDS ORDERED: Albuterol 0.083% Inhal Sol (2.5 mg/3 mL) UD INH PRN (08:00)
[2018-03-27] MEDS ORDERED: Pantoprazole 40 mg EC Tab PO SCH (09:00)
--- NOTE | 2018-03-27 09:22 | CT ---
Date of service: 03/27/2018 PROCEDURE: CT HEAD WITHOUT CONTRAST. HISTORY: trauma COMPARISON: Comparison made with prior CT scan 07/01/2017 TECHNIQUE: Axial computed tomography images were obtained through the head/brain without intravenous contrast. Radiation dose: Total exam DLP = 1543.8 mGy-cm. This CT exam was performed using one or more of the following dose reduction techniques: Automated exposure control, adjustment of the mA and/or kV according to patient size, and/or use of iterative reconstruction technique. . FINDINGS: HEMORRHAGE: No acute parenchymal, subarachnoid or extra-axial hemorrhage. BRAIN: No mass effect or edema. No atrophy or chronic microvascular ischemic changes. Minor generalized volume loss VENTRICLES: Unremarkable. No hydrocephalus. CALVARIUM: Unremarkable. PARANASAL SINUSES: Unremarkable as visualized. No significant inflammatory changes. MASTOID AIR CELLS: Unremarkable as visualized. No inflammatory changes. OTHER FINDINGS: None. IMPRESSION: No acute intracranial hemorrhage. Minor generalized volume loss
--- NOTE | 2018-03-27 09:23 | RAD ---
Date of service: 03/27/2018 PROCEDURE: Right Knee Radiographs. HISTORY: trauma COMPARISON: None. FINDINGS: BONES: No acute displaced fracture nor dislocation JOINTS: Tricompartmental degenerative osteoarthritis most notably affecting the medial compartment. There is some moderate medial joint space narrowing with mild subchondral sclerosis and medial marginal osteophyte formation. Slight spurring tibial spines. Small osteophytes seen arising from the lateral tibial plateau. Tiny posterior patellar osteophytes are present. JOINT EFFUSION: Tiny joint effusion. OTHER FINDINGS: None. IMPRESSION: No evidence of acute displaced fracture nor dislocation. Mild DJD most notably affecting the medial compartment. Small suprapatellar joint effusion.
[2018-03-27] MEDS: Acetaminophen-Codeine 300/30 mg Tab PO PRN (09:56)
[2018-03-27] MEDS: Lactated Ringer's 1,000 ML IV SCH (09:58)
--- NOTE | 2018-03-27 10:14 | CT ---
Date of service: 03/27/2018 PROCEDURE: CT MAXILLOFACIAL BONES WITHOUT CONTRAST HISTORY: trauma COMPARISON: Correlation made with concurrent CT scan brain TECHNIQUE: Contiguous axial CT images of the maxillofacial bones were obtained. Coronal and sagittal reformats were generated. Radiation dose: Total exam DLP = 1543.8 mGy-cm. This CT exam was performed using one or more of the following dose reduction techniques: Automated exposure control, adjustment of the mA and/or kV according to patient size, and/or use of iterative reconstruction technique. FINDINGS: NASAL BONES: Nasal bones and anterior nasal spine of the maxilla intact the ORBITS: Unremarkable. Globes intact and lenses appropriately located. There are no retrobulbar hemorrhages or collections. PARANASAL SINUSES/ MASTOIDS: Nasal septum is midline however there is a defect in the anterior inferior aspect of the nasal septum with skin indication between both right and left nasal cavities. . Clinical correlation with history recommended. Minimal mucosal thickening both maxillary antra. No fluid levels seen to suggest acute hemorrhage or sinusitis. MAXILLA: Unremarkable. MANDIBLE/ TEMPOROMANDIBULAR JOINTS: Unremarkable. SKULL BASE: Unremarkable. TEMPORAL BONES: Middle ears and mastoid grossly unremarkable. OTHER FINDINGS: None. IMPRESSION: No evidence of acute maxillofacial skeletal fractures. There is a defect within the anterior inferior margin of the nasal septum. Minimal mucosal thickening both maxillary antra
--- NOTE | 2018-03-27 14:28 | CT ---
Date of service: 03/27/2018 PROCEDURE: CT Chest, Abdomen and Pelvis without intravenous contrast HISTORY: trauma COMPARISON: Comparison made with prior CT chest and CT scan of the abdomen and pelvis dated 08/04/2011 and 06/09/2017 respectively. Tech TECHNIQUE: Radiation dose: Total exam DLP = 602.90 mGy-cm. This CT exam was performed using one or more of the following dose reduction techniques: Automated exposure control, adjustment of the mA and/or kV according to patient size, and/or use of iterative reconstruction technique. . Note that the lack of circulating intravenous contrast material limits evaluation for vascular and solid organ injury. FINDINGS: CT CHEST WITHOUT CONTRAST: LUNGS: Clear. No nodule, mass or consolidation. MEDIASTINUM: Unremarkable. Normal caliber aorta and pulmonary arterial trunk. . The the right brachiocephalic and left common carotid arteries arise from common trunk Normal size heart. LYMPH NODES: Unremarkable. PLEURA: Unremarkable. No pneumothorax. No pleural fluid. BONES: Unremarkable. OTHER FINDINGS: None. CT ABDOMEN AND PELVIS: LIVER: Unremarkable. No gross lesion or ductal dilatation. GALLBLADDER AND BILE DUCTS: Unremarkable. PANCREAS: Unremarkable. No gross lesion or ductal dilatation. SPLEEN: Unremarkable. ADRENALS: Unremarkable. No mass. KIDNEYS AND URETERS: Tiny nonobstructing calcifications mid -lower pole left kidney. . There are a few punctate calcifications seen in the upper and midpole right kidney. No evidence of hydronephrosis. VASCULATURE: Unremarkable. No aortic aneurysm. BOWEL: Unremarkable. No obstruction. No gross mural thickening. APPENDIX: Normal appendix. PERITONEUM: Unremarkable. No free fluid. No free air. LYMPH NODES: Unremarkable. No enlarged lymph nodes. BLADDER: Urinary bladder incompletely distended which may account for slight thick-walled appearance. Rule out cystitis. The REPRODUCTIVE: Unremarkable. BONES: Bilateral pars interarticularis defects with an approximately L5-S1 level with no evidence of significant spondylolisthesis. Widening of the AP diameter canal at this level. . There is a slight lumbar scoliosis convex left with minimal dextroscoliosis mid thoracic region. OTHER FINDINGS: None. IMPRESSION: No acute intra thoracic or intra abdominal pathology. Tiny nonobstructing bilateral renal calcifications Chronic bilateral pars interarticularis defects L5 level with widening of the AP diameter canal at L5-S1. Minimal wall thickening of the urinary bladder likely due to incomplete distention; rule out cystitis.
[2018-03-27] MEDS ORDERED: Multivitamin (MVI) 10 ML, Thiamine 100 MG, Folic Acid 1 MG in Sodium Chloride 0.9% 1,00... IV ONE (15:00)
[2018-03-27] MEDS ORDERED: methylPREDNISolone 125 MG in Sodium Chloride 0.9% 50 ML IVPB ONE (17:13)
--- NOTE | 2018-03-27 18:14 | PCM.RRT ---
Addendum entered and electronically signed by Ting Farmer MD 03/27/18 18: 48: Patient had no complaints of chest pain and chest pain was ruled out at bedside. Patient actually reported swelling/numbness of the tongue, throat closing and hives after receiving a medication. Original Note: <Tnig Farmer - Last Filed: 03/27/18 18:15> PHYSICAL THERAPY DIRECTOR Nurse Assessment - Situation Location: [address] [place] [address] Number: [phone] PHYSICAL THERAPY DIRECTOR Reason for Call: Chest Pain, Looks Sicker PHYSICAL THERAPY DIRECTOR Called By: RN - IV IV Inserted during PHYSICAL THERAPY DIRECTOR?: No - Respiratory Oxygen Delivery Method: Room Air Received Nebulizer Treatments: No Was the Patient Ventilated with Bag/Mask 100% O2?: No Secretions Suctioned?: No Was the Patient Intubated?: No Was the Patient Placed on a Ventilator?: No - Medication Medications Administered During PHYSICAL THERAPY DIRECTOR: Solumedrol 125 mg IVp - Diagnostic Test Ordered EKG: No Chest X-Ray: No CT Scan: No CPR started during PHYSICAL THERAPY DIRECTOR?: No - Vital Signs Vital Signs: Rapid Response Vital Sign Blood Pressure 167/96 Pulse Rate 102 Respiratory Rate 18 Oxygen Saturation 100 - Time PHYSICAL THERAPY DIRECTOR Ended Time PHYSICAL THERAPY DIRECTOR Ended: 17:20 - Vital Signs at end of PHYSICAL THERAPY DIRECTOR Vital Signs at end of PHYSICAL THERAPY DIRECTOR: Rapid Response End Vital Sign Blood Pressure 150/93 Pulse Rate 112 Respiratory Rate 18 O2 Sat by Pulse Oximetry 99 - Recommendations PHYSICAL THERAPY DIRECTOR Level of Care Recommendations: Remain in current setting I.Reason for PHYSICAL THERAPY DIRECTOR - A) Acute Change in Patient: Subjective: PHYSICAL THERAPY DIRECTOR PHYSICAL THERAPY DIRECTOR Time:5:08pm PHYSICAL THERAPY DIRECTOR Location:[address] [place] [address] [id number] PHYSICAL THERAPY DIRECTOR Arrival:5:09pm PHYSICAL THERAPY DIRECTOR Reason:Swelling/numbness of the tongue, throat closing Allergies: Morphine, Penicillin, Iodine, Shellfish S: Patient here for seizures was given multiple medications, after receiving one its remains unclear which, patient started to feel itchy with hives on her left arm, it progressively started to worsen, then patient started feeling numbness and swelling of her tongue and the roof of her mouth, she progressively started to feel her throat start to close similar to the reaction she experienced when she ate shellfish. O: PHYSICAL THERAPY DIRECTOR Vitals:T: 98.7 BP: 167/96 HR:112, RR18 O2Sat: 98% General:Patient is lying in bed in acute distress, AAOx3 HEENT:Swelling noted of tongue and face, previous scab over left eye brow, redness along left cheek Cardiac:RRR + S1S2 no murmurs, rubs or gallops Resp:B/L breath sounds heard between coughing, No Wheezing, No Rails, No Rhonchi , No clubbing, B/L symmetric chest rise Abdo:+ BS heard, no tenderness to palpation. Skin: Hives mid left arm near IV access PHYSICAL THERAPY DIRECTOR intervention: - Solumedrol 125mg IVPB once D/C Amlodipine 5mg QD switched to Losartan, Hold Keppra, D/C Banana bag A/P:42 yo Female with numbness/swelling of tongue and throat closing PHYSICAL THERAPY DIRECTOR Outcome:Patient started to feel relief of symptoms after treatment regimen and regained stability. Events ~ PHYSICAL THERAPY DIRECTOR vitals:BP: 151/94 HR:85, O2Sat: 99% PHYSICAL THERAPY DIRECTOR end:5:20pm PHYSICAL THERAPY DIRECTOR Leader:Dr. Nicolle Fernandez PHYSICAL THERAPY DIRECTOR residents:Dr. Mata Camacho PGY-2 Dr. Ting Farmer PGY-1 <Nicolle Fernandez K - Last Filed: 03/28/18 08:35> PHYSICAL THERAPY DIRECTOR Nurse Assessment - Vital Signs Vital Signs: Rapid Response Vital Sign Blood Pressure 167/96 Pulse Rate 102 Respiratory Rate 18 Oxygen Saturation 100 - Vital Signs at end of PHYSICAL THERAPY DIRECTOR Vital Signs at end of PHYSICAL THERAPY DIRECTOR: Rapid Response End Vital Sign Blood Pressure 150/93 Pulse Rate 112 Respiratory Rate 18 O2 Sat by Pulse Oximetry 99 Attending/Attestation - Attestation I have personally seen and examined this patient.: Yes I have fully participated in the care of the patient.: Yes I have reviewed all pertinent clinical information, including history, physical exam and plan: Yes Notes (Text): 03/28/18 08:33 seen examined discussed with resident, agree withf dianna s above. however of note, correction: patient ACEI was discontinued and started on amlodipine. after solumedrol, pt stated she feels improved. discusse with dr. wilson. 03/28/18 08:34
[2018-03-28] MEDS: Acetaminophen-Codeine 300/30 mg Tab PO PRN ×2 (05:00→23:52)
[2018-03-28] MEDS: Lactated Ringer's 1,000 ML IV SCH (13:13)
--- NOTE | 2018-03-28 17:10 | CP.PCM.PN ---
Subjective - Date & Time of Evaluation Date of Evaluation: 03/28/18 Time of Evaluation: 10:30 - Subjective Subjective: An MD ALLERGY IMMUNOLOGY was called yesterday as patient developed an acute anaphylactic reaction to either seizure meds and or Lisinopril, She apparently developed SON and feeling of tightening of the throat. She was given iv solumedrol and albuterol and benadryl She did very well. She was started on Trileptal and Keppra was discontinued. Lisinopril was also discontinued and replaced by cozaar. She feels a lot better today. Objective - Vital Signs/Intake and Output Vital Signs (last 24 hours): Temp Pulse Resp BP Pulse Ox 99.1 F 84 20 137/72 99 03/28/18 15:43 03/28/18 15:43 03/28/18 15:43 03/28/18 15:43 03/28/18 15:43 - Medications Medications: Current Medications Acetaminophen (Tylenol 325mg Tab) 650 mg PO Q6 PRN PRN Reason: Pain, moderate (4-7) Last Admin: 03/28/18 09:33 Dose: 650 mg Acetaminophen/Codeine Phosphate (Tylenol/Codeine 300 Mg/30 Mg) 1 tab PO Q6 PRN PRN Reason: Pain, severe (8-10) Last Admin: 03/28/18 05:00 Dose: 1 tab Albuterol Sulfate (Albuterol 0.083% Inhal Arlen (2.5 Mg/3 Ml) Ud) 2.5 mg INH RQID PRN PRN Reason: Shortness of Breath Famotidine (Pepcid) 40 mg PO DAILY [facility] Last Admin: 03/28/18 09:22 Dose: 40 mg Folic Acid (Folic Acid) 1 mg PO DAILY [facility] Last Admin: 03/28/18 09:21 Dose: 1 mg Losartan Potassium (Cozaar) 25 mg PO DAILY [facility] Last Admin: 03/28/18 09:21 Dose: 25 mg Methotrexate (Methotrexate) 15 mg PO SUN [facility] PRN Reason: Protocol Last Admin: 03/28/18 09:23 Dose: 15 mg Ondansetron HCl (Zofran Tab) 4 mg PO Q6 PRN PRN Reason: Nausea/Vomiting Oxcarbazepine (Trileptal) 150 mg PO BID [facility] Last Admin: 03/28/18 11:26 Dose: 150 mg Prednisone (Prednisone Tab) 40 mg PO DAILY [facility] Last Admin: 03/28/18 09:22 Dose: 40 mg - Labs Labs: 03/27/18 00:48 03/27/18 00:48 PT 11.8 Seconds (9.8-13.1) 03/27/18 00:48 INR 1.1 (0.9-1.2) 03/27/18 00:48 APTT 32.3 Seconds (25.6-37.1) 03/27/18 00:48 - Head Exam Head Exam: NORMAL INSPECTION - Eye Exam Eye Exam: Normal appearance - ENT Exam ENT Exam: Mucous Membranes Moist - Respiratory Exam Respiratory Exam: Clear to Ausculation Bilateral - Cardiovascular Exam Cardiovascular Exam: REGULAR RHYTHM - GI/Abdominal Exam GI & Abdominal Exam: Normal Bowel Sounds - Neurological Exam Neurological Exam: Awake, Oriented x3 Assessment and Plan (1) Seizure Status: Acute (2) Facial contusion Status: Acute (3) Back pain Status: Acute (4) Hypertension Status: Acute (5) Asthma Status: Acute (6) SLE (systemic lupus erythematosus) Status: Acute (7) Drug-induced hypersensitivity reaction Status: Acute - Assessment and Plan (Free Text) Plan: Cont meds Discussed with Dr Waller. Cont meds will send for EEG in AM cont tx
--- NOTE | 2018-03-29 09:17 | CON ---
DATE: 03/27/2018 NEUROLOGY CONSULTATION CHIEF COMPLAINT: Seizure. HISTORY OF PRESENT ILLNESS: This is a 42-year-old woman with history of anxiety, asthma, migraine headaches, rheumatoid arthritis on methotrexate and Enbrel. She is also on Xanax for ongoing anxiety and is on for pain Tylenol and codeine as well as tramadol. She came in because she had fell down had witnessed seizure with foaming of the mouth, generalized tonic, witnessed by bystanders. 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 She sees a neurologist, Dr. Ospina, but has not seen him in a while. She is on daily tramadol, which I told her that lowers the seizure threshold and to stop it. She took four tramadol prior to her having a seizure yesterday. She has poor sleep hygiene, only average of three to four hours of sleep. CAT scan of the head showed no acute intracranial abnormality. There is some frontal swelling from the fall. No acute events overnight. Moves all extremities equally. No focal weakness of the extremities. PAST MEDICAL HISTORY: As above. SOCIAL HISTORY: No illicit drug use, smoking or EtOH abuse. PAST SURGICAL HISTORY: Endoscopy. FAMILY HISTORY: Noncontributory. MEDICATIONS: Reviewed by nurse reconciliation sheet. ALLERGIES: ALLERGIC TO PENICILLIN, MORPHINE, IODINE, AND SEAFOOD. REVIEW OF SYSTEMS: A 14-point review of systems is negative except in the HPI. LABORATORY DATA: Sodium is 140, potassium 3.9, chloride 106, carbon dioxide 22, BUN of 12, creatinine 0.6, and random glucose 131. PHYSICAL EXAMINATION: VITAL SIGNS: Temperature of 98.5, pulse rate 90, blood pressure 137/79, respiratory rate 18, and oxygen saturation via room air. GENERAL: The patient is sitting up in bed, in no acute distress. HEENT: Atraumatic and normocephalic. PERRLA. Extraocular muscles are intact. NECK: Supple. No JVD. No adenopathy noted. LUNGS: Clear to auscultation. No adventitious sounds. HEART: S1 and S2. Normal rate and rhythm. No murmur, rubs, or gallops. ABDOMEN: Soft, nontender, nondistended. Bowel sounds are present. EXTREMITIES: No clubbing. No cyanosis. Peripheral pulses are 2+ felt bilaterally. NEUROLOGIC: The patient is alert and oriented to person, place, month, and year. Speech is fluent without any errors. Cranial nerves II through XII are intact. Motor: Moves all extremities equally. Toes are downgoing bilaterally. Sensory exam: Light touch, pinprick, proprioception and, vibrations are intact. DTRs are 2+ throughout. Coordination: [id number] intact. No dysmetria noted. Gait is deferred for now. ASSESSMENT AND PLAN: 1. This is a 42-year-old woman with history of rheumatoid arthritis, chronic pain from rheumatoid arthritis, on tramadol, Tylenol, and codeine, insomnia, poor sleep hygiene, anxiety, asthma, migraines, who presented with breakthrough seizure, likely secondary from overuse of tramadol in addition for sleep deprivation. At this time, recommended Keppra 5 mg p.o. b.i.d. 2. Electroencephalogram as outpatient with her neurologist, Dr. Ospina . 3. Monitor electrolytes and correct accordingly. 4. She takes estrogen, will need to follow up with her educational program assistant to reduce the estrogen . 5. CAT scan of the head reviewed. No acute intracranial abnormalities. MRI of the brain reviewed from 2017, which is unremarkable. She is clinically stable from my standpoint and can be discharged tomorrow. Dallin Waller MD
--- NOTE | 2018-03-29 11:11 | CP.PCM.PN ---
Subjective - Date & Time of Evaluation Date of Evaluation: 03/29/18 Time of Evaluation: 11:11 - Subjective Subjective: Patient is doing well Worried about estrogen pills she is on with Trileptal Has no seisure episode in the past 24 hrs. Has no headaches Objective - Vital Signs/Intake and Output Vital Signs (last 24 hours): Temp Pulse Resp BP Pulse Ox 98.5 F 69 18 145/98 H 99 03/29/18 07:56 03/29/18 09:00 03/29/18 07:56 03/29/18 08:17 03/29/18 07:56 - Medications Medications: Current Medications Acetaminophen (Tylenol 325mg Tab) 650 mg PO Q6 PRN PRN Reason: Pain, moderate (4-7) Last Admin: 03/28/18 19:26 Dose: 650 mg Acetaminophen/Codeine Phosphate (Tylenol/Codeine 300 Mg/30 Mg) 1 tab PO Q6 PRN PRN Reason: Pain, severe (8-10) Last Admin: 03/28/18 23:52 Dose: 1 tab Albuterol Sulfate (Albuterol 0.083% Inhal Arlen (2.5 Mg/3 Ml) Ud) 2.5 mg INH RQID PRN PRN Reason: Shortness of Breath Clonidine HCl (Catapres) 0.1 mg PO BID ON LICENSE OF [facility] Famotidine (Pepcid) 40 mg PO DAILY ON LICENSE OF [facility] Last Admin: 03/29/18 08:20 Dose: 40 mg Folic Acid (Folic Acid) 1 mg PO DAILY ON LICENSE OF [facility] Last Admin: 03/29/18 08:18 Dose: 1 mg Losartan Potassium (Cozaar) 50 mg PO DAILY ON LICENSE OF [facility] Last Admin: 03/29/18 08:17 Dose: 50 mg Methotrexate (Methotrexate) 15 mg PO SUN ON LICENSE OF [facility] PRN Reason: Protocol Last Admin: 03/28/18 09:23 Dose: 15 mg Ondansetron HCl (Zofran Tab) 4 mg PO Q6 PRN PRN Reason: Nausea/Vomiting Oxcarbazepine (Trileptal) 150 mg PO BID ON LICENSE OF [facility] Last Admin: 03/29/18 08:19 Dose: 150 mg Prednisone (Prednisone Tab) 40 mg PO DAILY ON LICENSE OF [facility] Last Admin: 03/29/18 08:18 Dose: 40 mg - Labs Labs: 03/27/18 00:48 03/27/18 00:48 PT 11.8 Seconds (9.8-13.1) 03/27/18 00:48 INR 1.1 (0.9-1.2) 03/27/18 00:48 APTT 32.3 Seconds (25.6-37.1) 03/27/18 00:48 - Head Exam Head Exam: NORMAL INSPECTION - Eye Exam Eye Exam: Normal appearance - ENT Exam ENT Exam: Mucous Membranes Moist - Respiratory Exam Respiratory Exam: Clear to Ausculation Bilateral - Cardiovascular Exam Cardiovascular Exam: REGULAR RHYTHM - GI/Abdominal Exam GI & Abdominal Exam: Normal Bowel Sounds - Neurological Exam Neurological Exam: Awake, Oriented x3 - Psychiatric Exam Psychiatric exam: Anxious Assessment and Plan (1) Seizure Status: Acute (2) Facial contusion Status: Acute (3) Back pain Status: Chronic (4) Hypertension Status: Chronic (5) Asthma Status: Acute (6) SLE (systemic lupus erythematosus) Status: Chronic (7) Drug-induced hypersensitivity reaction Status: Acute - Assessment and Plan (Free Text) Plan: Cont meds Cont tx Cont PT discharge plans follow up with Neurology
--- NOTE | 2018-03-29 13:52 | CARD ---
APPROVED REPORT Date of service: 03/27/2018 EKG Measurement Heart [id number] <Conclusion> Normal sinus rhythm Nonspecific ST abnormality Abnormal ECG
[2018-03-30 00:15] VITALS: O2SAT 98
[2018-03-30] MEDS: Acetaminophen-Codeine 300/30 mg Tab PO PRN (05:17)
--- NOTE | 2018-03-30 11:59 | CP.PCM.DIS ---
<Stephany Roa - Last Filed: 03/30/18 12:04> Provider - Provider Date of Admission: 03/27/18 00:38 Attending physician: Francisco Carbajal MD Time Spent in preparation of Discharge (in minutes): 20 Diagnosis - Discharge Diagnosis (1) Seizure Status: Acute (2) Hypertension Status: Chronic (3) SLE (systemic lupus erythematosus) Status: Chronic (4) Back pain Status: Chronic Hospital Course - Lab Results Lab Results: Most Recent Lab Values WBC 5.5 K/uL (4.8-10.8) 03/27/18 00:48 RBC 3.61 Mil/uL (3.80-5.20) L 03/27/18 00:48 Hgb 11.8 g/dL (12.0-16.0) L 03/27/18 00:48 Hct 34.9 % (34.0-47.0) 03/27/18 00:48 MCV 96.7 fl (81.0-99.0) D 03/27/18 00:48 MCH 32.7 pg (27.0-31.0) H 03/27/18 00:48 MCHC 33.8 g/dL (33.0-37.0) 03/27/18 00:48 RDW 14.7 % (11.5-14.5) H 03/27/18 00:48 Plt Count 233 K/uL (130-400) 03/27/18 00:48 MPV 8.1 fl (7.2-11.7) 03/27/18 00:48 Neut % (Auto) 68.5 % (50.0-75.0) 03/27/18 00:48 Lymph % (Auto) 21.1 % (20.0-40.0) 03/27/18 00:48 Stoddard % (Auto) 9.4 % (0.0-10.0) 03/27/18 00:48 Eos % (Auto) 0.4 % (0.0-4.0) 03/27/18 00:48 Baso % (Auto) 0.6 % (0.0-2.0) 03/27/18 00:48 Neut # (Auto) 3.7 K/uL (1.8-7.0) 03/27/18 00:48 Lymph # (Auto) 1.2 K/uL (1.0-4.3) 03/27/18 00:48 Stoddard # (Auto) 0.5 K/uL (0.0-0.8) 03/27/18 00:48 Eos # (Auto) 0.0 K/uL (0.0-0.7) 03/27/18 00:48 Baso # (Auto) 0.0 K/uL (0.0-0.2) 03/27/18 00:48 ESR 18 mm/hr (0-20) 03/29/18 04:40 PT 11.8 Seconds (9.8-13.1) 03/27/18 00:48 INR 1.1 (0.9-1.2) 03/27/18 00:48 APTT 32.3 Seconds (25.6-37.1) 03/27/18 00:48 Sodium 140 mmol/l (132-148) 03/27/18 00:48 Potassium 3.9 MMOL/L (3.6-5.0) 03/27/18 00:48 Chloride 106 mmol/L (98-107) 03/27/18 00:48 Carbon Dioxide 22 mmol/L (22-30) 03/27/18 00:48 Anion Gap 16 (10-20) 03/27/18 00:48 BUN 12 mg/dl (7-17) 03/27/18 00:48 Creatinine 0.6 mg/dl (0.7-1.2) L 03/27/18 00:48 Est GFR ( Amer) > 60 03/27/18 00:48 Est GFR (Non-Af Amer) > 60 03/27/18 00:48 Random Glucose 131 mg/dL (65-105) H 03/27/18 00:48 Hemoglobin A1c 5.0 % (4.2-6.5) 03/29/18 04:40 Calcium 9.9 mg/dL (8.4-10.2) 03/27/18 00:48 Total Bilirubin 0.5 mg/dl (0.2-1.3) 03/27/18 00:48 AST 33 U/L (14-36) 03/27/18 00:48 ALT 36 U/L (9-52) 03/27/18 00:48 Alkaline Phosphatase 50 U/L (38-126) 03/27/18 00:48 Total Protein 8.3 G/DL (6.3-8.2) H 03/27/18 00:48 Albumin 4.8 g/dL (3.5-5.0) 03/27/18 00:48 Globulin 3.5 gm/dL (2.2-3.9) 03/27/18 00:48 Albumin/Globulin Ratio 1.4 (1.0-2.1) 03/27/18 00:48 Triglycerides 141 mg/DL (0-149) 03/29/18 04:40 Cholesterol 253 mg/dL (0-199) H 03/29/18 04:40 LDL Cholesterol Direct 146 mg/dL (0-129) H 03/29/18 04:40 HDL Cholesterol 61 MG/DL (30-70) 03/29/18 04:40 TSH 3rd Generation 1.38 mIU/ML (0.46-4.68) 03/29/18 04:40 Urine Color Yellow (YELLOW) 03/27/18 00:48 Urine Clarity Slighty-cloudy (Clear) 03/27/18 00:48 Urine pH 5.0 (5.0-8.0) 03/27/18 00:48 Ur Specific Coburn 1.036 (1.003-1.030) H 03/27/18 00:48 Urine Protein 30 mg/dL (NEGATIVE) 03/27/18 00:48 Urine Glucose (UA) 50 mg/dL (Normal) 03/27/18 00:48 Urine Ketones Trace mg/dL (NEGATIVE) 03/27/18 00:48 Urine Blood Negative (NEGATIVE) 03/27/18 00:48 Urine Nitrate Negative (NEGATIVE) 03/27/18 00:48 Urine Bilirubin Negative (NEGATIVE) 03/27/18 00:48 Urine Urobilinogen 0.2-1.0 mg/dL (0.2-1.0) 03/27/18 00:48 Ur Leukocyte Esterase Neg Sara/uL (Negative) 03/27/18 00:48 Urine RBC (Auto) 4 /hpf (0-3) H 03/27/18 00:48 Urine Microscopic WBC 2 /hpf (0-5) 03/27/18 00:48 Ur Squamous Epith Cells 1 /hpf (0-5) 03/27/18 00:48 Blood Type A NEGATIVE 03/27/18 00:45 Antibody Screen Negative 03/27/18 00:45 BBK History Checked Patient has bt 03/27/18 00:45 - Hospital Course Hospital Course: 42 YO female with PMHx of seizure, HTN, SLE was admitted after recurrent seizure episode witness by her mother. During the hospitals stay, no-seizure like activity was noted. Neurology was consulted and workup was negative. Medications were adjusted and blood work was sig for HLD, no acute CT findings. Pt to start on statin on d/c. pt cleared to be discharged to home, with follow up with pmd. Discharge Exam - Head Exam Head Exam: NORMAL INSPECTION - Eye Exam Eye Exam: EOMI, Normal appearance - ENT Exam ENT Exam: Mucous Membranes Moist - Respiratory Exam Respiratory Exam: Clear to PA & Lateral. absent: Wheezes - Cardiovascular Exam Cardiovascular Exam: REGULAR RHYTHM, +S1, +S2 - GI/Abdominal Exam GI & Abdominal Exam: Normal Bowel Sounds, Soft. absent: Tenderness - Extremities Exam Extremities exam: normal inspection - Neurological Exam Neurological exam: Alert, Oriented x3 - Psychiatric Exam Psychiatric exam: Normal Mood Discharge Plan - Discharge Medications Prescriptions: Atorvastatin [Lipitor] 40 mg PO DAILY #30 tab cloNIDine [Catapres] 0.1 mg PO BID #60 tab Losartan [Cozaar] 50 mg PO DAILY #30 tab OXcarbazepine [Trileptal] 150 mg PO BID #60 tab - Follow Up Plan Condition: FAIR Disposition: HOME/ ROUTINE Instructions: High Blood Pressure in Adults, Low Cholesterol, Saturated Fat, and Trans Fat Diet , Seizures, Adult (DC) Additional Instructions: follow up with in 1 week follow up with neurology in 1 week i was present during evaluation and discussed with Dr priya mcintosh plans of care and discharge plans. advised follow up with PMD. Referrals: Radha Calderon MD [Staff Provider] - Renata Waller MD [Non-Staff] - <Francisco Carbajal - Last Filed: 04/05/18 07:22> Provider - Provider Date of Admission: 03/27/18 00:38 Attending physician: Francisco Carbajal MD Diagnosis - Discharge Diagnosis (1) Seizure Status: Acute (2) Facial contusion Status: Acute (3) Back pain Status: Chronic (4) Hypertension Status: Chronic (5) Asthma Status: Acute (6) SLE (systemic lupus erythematosus) Status: Chronic (7) Drug-induced hypersensitivity reaction Status: Acute Hospital Course - Lab Results Lab Results: Most Recent Lab Values WBC 5.5 K/uL (4.8-10.8) 03/27/18 00:48 RBC 3.61 Mil/uL (3.80-5.20) L 03/27/18 00:48 Hgb 11.8 g/dL (12.0-16.0) L 03/27/18 00:48 Hct 34.9 % (34.0-47.0) 03/27/18 00:48 MCV 96.7 fl (81.0-99.0) D 03/27/18 00:48 MCH 32.7 pg (27.0-31.0) H 03/27/18 00:48 MCHC 33.8 g/dL (33.0-37.0) 03/27/18 00:48 RDW 14.7 % (11.5-14.5) H 03/27/18 00:48 Plt Count 233 K/uL (130-400) 03/27/18 00:48 MPV 8.1 fl (7.2-11.7) 03/27/18 00:48 Neut % (Auto) 68.5 % (50.0-75.0) 03/27/18 00:48 Lymph % (Auto) 21.1 % (20.0-40.0) 03/27/18 00:48 Stoddard % (Auto) 9.4 % (0.0-10.0) 03/27/18 00:48 Eos % (Auto) 0.4 % (0.0-4.0) 03/27/18 00:48 Baso % (Auto) 0.6 % (0.0-2.0) 03/27/18 00:48 Neut # (Auto) 3.7 K/uL (1.8-7.0) 03/27/18 00:48 Lymph # (Auto) 1.2 K/uL (1.0-4.3) 03/27/18 00:48 Stoddard # (Auto) 0.5 K/uL (0.0-0.8) 03/27/18 00:48 Eos # (Auto) 0.0 K/uL (0.0-0.7) 03/27/18 00:48 Baso # (Auto) 0.0 K/uL (0.0-0.2) 03/27/18 00:48 ESR 18 mm/hr (0-20) 03/29/18 04:40 PT 11.8 Seconds (9.8-13.1) 03/27/18 00:48 INR 1.1 (0.9-1.2) 03/27/18 00:48 APTT 32.3 Seconds (25.6-37.1) 03/27/18 00:48 Sodium 140 mmol/l (132-148) 03/27/18 00:48 Potassium 3.9 MMOL/L (3.6-5.0) 03/27/18 00:48 Chloride 106 mmol/L (98-107) 03/27/18 00:48 Carbon Dioxide 22 mmol/L (22-30) 03/27/18 00:48 Anion Gap 16 (10-20) 03/27/18 00:48 BUN 12 mg/dl (7-17) 03/27/18 00:48 Creatinine 0.6 mg/dl (0.7-1.2) L 03/27/18 00:48 Est GFR ( Amer) > 60 03/27/18 00:48 Est GFR (Non-Af Amer) > 60 03/27/18 00:48 Random Glucose 131 mg/dL (65-105) H 03/27/18 00:48 Hemoglobin A1c 5.0 % (4.2-6.5) 03/29/18 04:40 Calcium 9.9 mg/dL (8.4-10.2) 03/27/18 00:48 Total Bilirubin 0.5 mg/dl (0.2-1.3) 03/27/18 00:48 AST 33 U/L (14-36) 03/27/18 00:48 ALT 36 U/L (9-52) 03/27/18 00:48 Alkaline Phosphatase 50 U/L (38-126) 03/27/18 00:48 Total Protein 8.3 G/DL (6.3-8.2) H 03/27/18 00:48 Albumin 4.8 g/dL (3.5-5.0) 03/27/18 00:48 Globulin 3.5 gm/dL (2.2-3.9) 03/27/18 00:48 Albumin/Globulin Ratio 1.4 (1.0-2.1) 03/27/18 00:48 Triglycerides 141 mg/DL (0-149) 03/29/18 04:40 Cholesterol 253 mg/dL (0-199) H 03/29/18 04:40 LDL Cholesterol Direct 146 mg/dL (0-129) H 03/29/18 04:40 HDL Cholesterol 61 MG/DL (30-70) 03/29/18 04:40 TSH 3rd Generation 1.38 mIU/ML (0.46-4.68) 03/29/18 04:40 Urine Color Yellow (YELLOW) 03/27/18 00:48 Urine Clarity Slighty-cloudy (Clear) 03/27/18 00:48 Urine pH 5.0 (5.0-8.0) 03/27/18 00:48 Ur Specific Coburn 1.036 (1.003-1.030) H 03/27/18 00:48 Urine Protein 30 mg/dL (NEGATIVE) 03/27/18 00:48 Urine Glucose (UA) 50 mg/dL (Normal) 03/27/18 00:48 Urine Ketones Trace mg/dL (NEGATIVE) 03/27/18 00:48 Urine Blood Negative (NEGATIVE) 03/27/18 00:48 Urine Nitrate Negative (NEGATIVE) 03/27/18 00:48 Urine Bilirubin Negative (NEGATIVE) 03/27/18 00:48 Urine Urobilinogen 0.2-1.0 mg/dL (0.2-1.0) 03/27/18 00:48 Ur Leukocyte Esterase Neg Sara/uL (Negative) 03/27/18 00:48 Urine RBC (Auto) 4 /hpf (0-3) H 03/27/18 00:48 Urine Microscopic WBC 2 /hpf (0-5) 03/27/18 00:48 Ur Squamous Epith Cells 1 /hpf (0-5) 03/27/18 00:48 KAYLEIGH Nuclear Membr Pat Negative (Negative) 03/29/18 04:40 Blood Type A NEGATIVE 03/27/18 00:45 Antibody Screen Negative 03/27/18 00:45 BBK History Checked Patient has bt 03/27/18 00:45
[2018-03-30 12:48] VITALS: BP 116/81; PULSE 66; RESP 18; TEMP 97.9
--- NOTE | 2018-04-14 11:04 | PQF ---
PROVIDER RESPONSE TEXT: Drug induced from tramadol REVIEWER QUERY TEXT: Epilepsy Underlying Cause Please specify the underlying cause of the epilepsy such as: -- Alcohol, drugs -- Febrile -- Post-traumatic -- Recurrent -- Stroke -- Other, please specify The patient's Clinical Indicators include: 03/[address] Waller "presented with breakthrough seizure likely secondary from overuse of tramad ol in addition for sleep deprivation." Query created by: Susie Steven on 03/31/2018 9:14 AM Electronically signed by: Francisco Carbajal MD 04/14/2018 11:01 AM
== END 2018-03-30 14:04 | disposition home or self-care (01) | DRG 449 ==
LOC: H.ER 21:51 → H.ERHOLD 03-27 00:38 → H.TEL 03-27 06:42
PROVIDERS: ADMIT Family Medicine; ATTEND Family Medicine
DX: T40.4X1A Poisoning by other synthetic narcotics, accidental (unintentional), initial encounter (principal); M32.9 Systemic lupus erythematosus, unspecified; N18.9 Chronic kidney disease, unspecified; F41.9 Anxiety disorder, unspecified; M06.9 Rheumatoid arthritis, unspecified; I12.9 Hypertensive chronic kidney disease with stage 1 through stage 4 chronic kidney disease, or unspecified chronic kidney disease; Z91.041 Radiographic dye allergy status; Z88.5 Allergy status to narcotic agent; Z88.0 Allergy status to penicillin; Z91.013 Allergy to seafood; J45.909 Unspecified asthma, uncomplicated; G43.909 Migraine, unspecified, not intractable, without status migrainosus; G89.29 Other chronic pain; Z72.820 Sleep deprivation; Z79.890 Hormone replacement therapy; S00.83XA Contusion of other part of head, initial encounter; E78.5 Hyperlipidemia, unspecified; G40.509 Epileptic seizures related to external causes, not intractable, without status epilepticus; T88.6XXA Anaphylactic reaction due to adverse effect of correct drug or medicament properly administered, initial encounter

== ENCOUNTER 2018-08-01 03:26 | Emergency (ER) | payer MEDICAID ==
[2018-08-01 03:26] VITALS: BMI 26.4
--- NOTE | 2018-08-01 04:06 | ED PDOC ---
HPI: Seizure Time Seen by Provider: 08/01/18 03:36 Chief Complaint (Nursing): Seizure Chief Complaint (Provider): Seizure History Per: Other (friend) History/Exam Limitations: clinical condition Recent Seizure Activity Began: Just Before Arrival Number Of Seizures: One Length Of Seizures (Duration): Seconds Quality Of Seizure: Generalized Associated Symptoms: denies: Bit Tongue, Incontinence Of Urine, Incontinence Of Stool Additional Complaint(s): 43yo female, history of seizure, brought to ER for evaluation after she had a witnessed seizure episode, lasting 15-30 seconds. Patient states she drank alcohol and took an ambien this evening and her seizure was witnessed by her neighbor/friend. Per friend, patient was "foaming at her mouth" and currently the patient states she has no recollection of the event. Patient has slurred speech as well. She has no medical complaints. PMD: Dr. Bess Calderon Past Medical History Reviewed: Historical Data, Nursing Documentation, Vital Signs Vital Signs: Last Vital Signs Temp 98.1 F 08/01/18 03:33 Pulse 107 H 08/01/18 03:33 Resp 17 08/01/18 03:33 BP 115/79 08/01/18 03:33 Pulse Ox 96 08/01/18 03:33 - Medical History PMH: Anemia, Anxiety, Asthma, HTN, Kidney Stones, Migraine, Chronic Kidney Disease, Rheumatoid Arthritis, Seizures Denies: HIV - Surgical History Surgical History: Endoscopy - Family History Family History: States: Unknown Family Hx - Social History Alcohol: Occasional - Immunization History Hx Tetanus Toxoid Vaccination: No Hx Influenza Vaccination: No Hx Pneumococcal Vaccination: No - Home Medications Home Medications: Ambulatory Orders Medication Instructions Recorded RX: Albuterol Sulfate [Albuterol 1 puff INH PRN PRN 01/05/15 Sulfate Hfa] RX: Alprazolam [Xanax] 1 mg PO DAILY 01/05/15 RX: Etanercept [Enbrel] 50 mg SC TH 01/05/15 RX: Folic Acid 1 mg PO DAILY 01/05/15 RX: Montelukast [Singulair] 10 mg PO DAILY 01/05/15 RX: Zolpidem Tartrate [Ambien] 5 mg PO HS 01/05/15 RX: Calcipotriene 1 appl TP BID 03/25/16 RX: Ergocalciferol [Drisdol 50,000 50,000 unit PO QWK 03/25/16 Intl Units Cap] RX: Ferrous Sulfate 325 mg PO DAILY 03/25/16 RX: Methotrexate 6 tab PO QWK 03/25/16 RX: Omeprazole [Prilosec] 40 mg PO DAILY 03/25/16 RX: Cyclobenzaprine [Flexeril] 10 mg PO BID PRN #14 tab 06/09/17 RX: Ondansetron ODT [Zofran ODT] 4 mg SL PRN PRN 03/27/18 RX: Sumatriptan Succinate [Imitrex] 50 mg PO PRN PRN 03/27/18 RX: predniSONE [predniSONE Tab] 40 mg PO DAILY 03/27/18 Losartan [Cozaar] 50 mg PO DAILY #30 tab 03/30/18 RX: Atorvastatin [Lipitor] 40 mg PO DAILY #30 tab 03/30/18 RX: OXcarbazepine [Trileptal] 150 mg PO BID #60 tab 03/30/18 RX: cloNIDine [Catapres] 0.1 mg PO BID #60 tab 03/30/18 - Allergies Allergies/Adverse Reactions: Allergies Allergy/AdvReac Type Severity Reaction Status Date / Time lisinopril Allergy Severe ANAPHYLAXIS Verified 08/01/18 03:33 Penicillins Allergy Severe RASH Verified 08/01/18 03:33 iodine Allergy REDNESS Verified 08/01/18 03:33 morphine Allergy RASH Verified 08/01/18 03:33 levetiracetam [From [facility]] AdvReac SWELLING Verified 08/01/18 03:33 banana bag Allergy ANAPHYLAXIS Uncoded 08/01/18 11:44 seafood Allergy SWELLING Uncoded 08/01/18 03:33 Review of Systems ROS Statement: Except As Marked, All Systems Reviewed And Found Negative Neurological: Positive for: Seizures Physical Exam - Reviewed Nursing Documentation Reviewed: Yes Vital Signs Reviewed: Yes - Physical Exam Appears: Positive for: No Acute Distress Head Exam: Positive for: ATRAUMATIC, NORMAL INSPECTION, NORMOCEPHALIC Skin: Positive for: Normal Color Eye Exam: Positive for: Normal appearance Neck: Positive for: Supple Cardiovascular/Chest: Positive for: Regular Rate, Rhythm Respiratory: Positive for: Normal Breath Sounds Gastrointestinal/Abdominal: Positive for: Normal Exam, Soft Extremity: Positive for: Normal ROM Neurologic/Psych: Positive for: Other (slurred speech). Negative for: Motor/Sensory Deficits - Laboratory Results Result Diagrams: 08/01/18 04:00 08/01/18 04:00 - ECG O2 Sat by Pulse Oximetry: 96 (RA) Pulse Ox Interpretation: Normal Medical Decision Making Medical Decision Making: Impression: 43yo female status post witnessed seizure episode. Patient with known history of seizure, and presents with alcohol and ambien use Plan: -- Labs -- Urine drug screen 0547 Patient's alcohol level is 420. 0700 Patient to be signed out to Dr. Baez pending clinical sobriety. Scribe Attestation: Documented by Zulma Pradhan, acting as a scribe for Cullen Núñez MD. Provider Scribe Attestation: All medical record entries made by the Scribe were at my direction and personally dictated by me. I have reviewed the chart and agree that the record accurately reflects my personal performance of the history, physical exam, medical decision making, and the department course for this patient. I have also personally directed, reviewed, and agree with the discharge instructions and disposition. Disposition - Clinical Impression Clinical Impression: Alcohol intoxication - Patient ED Disposition Is Patient to be Admitted: Transfer of Care - Disposition Disposition: Transfer of Care Disposition Time: 07:00 Condition: GOOD Additional Instructions: HAMIDA BULL, thank you for letting us take care of you today. Your provider was Humberto Baez MD and you were treated for POSS SEIZURE. The emergency medical care you received today was directed at your acute symptoms. If you were prescribed any medication, please fill it and take as directed. It may take several days for your symptoms to resolve. Return to the Emergency Department if your symptoms worsen, do not improve, or if you have any other problems. Please contact your doctor or call one of the physicians/clinics you have been referred to that are listed on the Patient Visit Information form that is included in your discharge packet. Bring any paperwork you were given at discharge with you along with any medications you are taking to your follow up visit. Our treatment cannot replace ongoing medical care by a primary care provider outside of the emergency department. Thank you for allowing the [facility] team to be part of your care today. If you had an X-Ray or CT scan: A Radiologist will review the ED reading if any change in treatment is needed we will contact you. If you had a blood, urine, or wound culture: It will take several days for the results, if any change in treatment is needed we will contact you. If you had an STI test: It will take 48 hours for the results. Please call after 1 week if you have not heard back. Instructions: Alcohol Abuse and Alcoholism (DC) Patient Signed Over To: Humberto Baez
[2018-08-01 04:16] LABS: BASO # 0.1 K/uL (0.0-0.2); EOS % 0.4 % (0.0-4.0); HEMOGLOBIN 11.8 g/dL (12.0-16.0); LYMPH # 1.8 K/uL (1.0-4.3); MEAN CELL VOLUME 97.1 fl (81.0-99.0); MEAN CORPUSCULAR HEMOGLOBIN 32.9 pg (27.0-31.0); MEAN CORPUSCULAR HGB CONC 33.9 g/dL (33.0-37.0); MEAN PLATELET VOLUME 7.4 fl (7.2-11.7); MONO # 0.4 K/uL (0.0-0.8); MONO % 7.7 % (0.0-10.0); NEUT % 56.9 % (50.0-75.0); NRBC % 0.1 % (0.0-0.0); RBC 3.6 Mil/uL (3.80-5.20); RED CELL DISTRIBUTION WIDTH 14.6 % (11.5-14.5); WHITE BLOOD COUNT 5.3 K/uL (4.8-10.8)
[2018-08-01 04:35] LABS: ACETAMINOPHEN < 10.0 ug/ml (10.0-30.0); SALICYLATE < 1.0 mg/dl
[2018-08-01 04:44] LABS: ALB/GLOB RATIO 1.3 (1.0-2.1); ALBUMIN 4.4 g/dL (3.5-5.0); ALT/SGPT 55 U/L (9-52); AST/SGOT 46 U/L (14-36); BLOOD UREA NITROGEN 9 mg/dl (7-17); CALCIUM 8.8 mg/dL (8.4-10.2); GFR NON-AFRICAN AMERICAN > 60
[2018-08-01 05:10] LABS: BARBITURATES, UR NEGATIVE (NEGATIVE); BENZODIAZEPINES, UR NEGATIVE (NEGATIVE); OPIATES, UR NEGATIVE (NEGATIVE); PHENCYCLIDINE, UR NEGATIVE (NEGATIVE)
[2018-08-01] MEDS ORDERED: Sodium Chloride 0.9% 1,000 ML IV STA (08:08)
[2018-08-01] MEDS ORDERED: Multivitamin (MVI) 10 ML, Thiamine 100 MG, Folic Acid 1 MG in Dextrose 5%/0.45% NS 1,00... IV ONE (09:00)
--- NOTE | 2018-08-01 09:51 | ED PDOC ---
- Laboratory Results Result Diagrams: 08/01/18 04:00 08/01/18 04:00 - ECG O2 Sat by Pulse Oximetry: 99 - Progress Re-evaluation Time: 13:34 (AOx3. ambulating wiht steady gait. ) Condition: Re-examined, Improved Medical Decision Making Medical Decision Makin:00 Patient endorsed to this provider from Dr. Núñez. Pending clinical sobriety. Scribe Attestation: Documented by Rusty Purvis acting as a scribe for Humberto Baez MD. Provider Scribe Attestation: All medical record entries made by the Scribe were at my direction and personally dictated by me. I have reviewed the chart and agree that the record accurately reflects my personal performance of the history, physical exam, medi markell decision making, and the department course for this patient. I have also personally directed, reviewed, and agree with the discharge instructions and disposition. Disposition Counseled Patient/Family Regarding: Studies Performed, Diagnosis, Need For Followup - Clinical Impression Clinical Impression: Alcohol intoxication - POA Present On Arrival: None - Disposition Disposition: Routine/Home Disposition Time: 13:35 Condition: GOOD Additional Instructions: HAMIDA BULL, thank you for letting us take care of you today. Your provider was Humberto Baez MD and you were treated for POSS SEIZURE. The emergency medical care you received today was directed at your acute symptoms. If you were prescribed any medication, please fill it and take as directed. It may take several days for your symptoms to resolve. Return to the Emergency Department if your symptoms worsen, do not improve, or if you have any other problems. Please contact your doctor or call one of the physicians/clinics you have been referred to that are listed on the Patient Visit Information form that is included in your discharge packet. Bring any paperwork you were given at [facility] with you along with any medications you are taking to your follow up visit. Our treatment cannot replace ongoing medical care by a primary care provider outside of the emergency department. Thank you for allowing the [facility] team to be part of your care today. If you had an X-Ray or CT scan: A Radiologist will review the ED reading if any change in treatment is needed we will contact you. If you had a blood, urine, or wound culture: It will take several days for the results, if any change in treatment is needed we will contact you. If you had an STI test: It will take 48 hours for the results. Please call after 1 week if you have not heard back. Instructions: Alcohol Abuse and Alcoholism (DC)
[2018-08-01 13:49] VITALS: BP 105/67; PULSE 109; RESP 19; TEMP 98.9
[2018-08-01 19:32] VITALS: O2SAT 96
[2018-08-02 16:03] LABS: PROLACTIN 31.3 ng/mL (3.0-18.9)
== END 2018-08-01 13:35 | disposition home or self-care (01) ==
LOC: H.ER 03:26
DX: F10.129 Alcohol abuse with intoxication, unspecified (principal); I12.9 Hypertensive chronic kidney disease with stage 1 through stage 4 chronic kidney disease, or unspecified chronic kidney disease; Y90.8 Blood alcohol level of 240 mg/100 ml or more; Z88.0 Allergy status to penicillin
CPT/HCPCS: 80053; 80320; 80324; 80329; 80345; 80346; 80349; 80353; 80358; 80361; 81025; 82948; 83992; 84146; 85025; 96361; 96374; 96375; 99285; J2060; J2405; J7030